=== PATIENT | male | born 1940 | race Two or more races ===

== ENCOUNTER 2018-09-16 17:06 | Inpatient (IN) | payer MEDICARE ==
[~2018-09-16] VITALS: Ht 170.2 cm; Wt 77.0 kg
[2018-09-16] MEDS ORDERED: NITROGLYCERIN OINT 2%, 1GM TP ONE ×3 (18:00→19:00)
[2018-09-16] MEDS ORDERED: DILTIAZEM 5 MG/ML, 5ML IVPush ONE (18:00)
[2018-09-16] MEDS ORDERED: DILTIAZEM 5 MG/ML, 5ML ONE (18:01)
[2018-09-16 18:11] LABS: INTERNATIONAL NORMALIZED RATIO 1.38 (0.93-1.1); PROTHROMBIN TIME 14.3 Seconds (9.6-11.5)
[2018-09-16 18:14] LABS: ALBUMIN 3.8 g/dL (3.4-5.0); ANION GAP 9 mmol/L (5-15); CALCIUM 8.9 mg/dL (8.5-10.1); CHLORIDE 109 mmol/L (98-107)
[2018-09-16 18:19] LABS: MD YES; MEAN CORPUSCULAR HEMOGLOBIN 21.6 pg (27.5-34.5); MEAN CORPUSCULAR HGB CONC 30.9 g/dL (33.2-36.2); MEAN CORPUSCULAR VOLUME 69.9 fL (81-97); MEAN PLATELET VOLUME 8.8 fL (7.4-10.4); PLATELET COUNT 196 x10^3/uL (130-400); RED BLOOD COUNT 5.79 x10^6/uL (4.38-5.82); RED CELL DISTRIBUTION WIDTH 16.9 % (9.4-14.8)
[2018-09-16 18:20] LABS: ALANINE AMINOTRANSFERASE 43 U/L (12-78); ALKALINE PHOSPHATASE 109 U/L (45-117); BILIRUBIN,TOTAL 1.1 mg/dL (0.2-1.0); CREATININE 1.25 mg/dL (0.7-1.3); TOTAL PROTEIN 7.5 g/dL (6.4-8.2)
[2018-09-16 18:22] LABS: BAND#(MANUAL) 0.06 x10^3/uL; BANDS%(MANUAL) 1 % (0-7); BASOS#(MANUAL) 0.12 x10^3/uL (0-0.1); BASOS% (MANUAL) 2 % (0-1); EOS#(MANUAL) 0.06 x10^3/uL (0.0-0.4); EOS% (MANUAL) 1 % (1-7); LYMPH#(MANUAL) 1.77 x10^3/uL (1-3.4); LYMPHS% (MANUAL) 30 % (22-44); MONOS#(MANUAL) 0.53 x10^3/uL (0.3-2.7); MONOS% (MANUAL) 9 % (2-9); SEG#(MANUAL) 3.36 x10^3/uL (1.8-6.8); SEGS% (MANUAL) 57 % (42-75)
[2018-09-16 18:23] LABS: <PLATELET ESTIMATE> ADEQUATE; <PLT MORPHOLOGY> NORMAL PLT MORPH; ANISOCYTOSIS 1+; MICROCYTOSIS 1+; OVALOCYTES 1+
[2018-09-16 18:24] LABS: TROPONIN I 0.438 ng/mL (0.000-0.045)
[2018-09-16] MEDS ORDERED: ASPIRIN 325 MG TABLET PO ONE (18:30)
[2018-09-16] MEDS ORDERED: ASPIRIN 81 MG TABLET CHEW ONE (18:38)
[2018-09-16] MEDS ORDERED: ASPIRIN 325 MG TABLET ONE (18:45)
[2018-09-16 18:57] LABS: THYROID STIMULATING HORMONE 1.78 mIU/L (0.358-3.740)
[2018-09-16] MEDS ORDERED: FOLI-17 PO (19:01)
[2018-09-16] MEDS ORDERED: MELO15TA24 PO (19:01)
[2018-09-16] MEDS ORDERED: [UNRECOGNIZED DRUG - OTHER] PO (19:01)
[2018-09-16] MEDS ORDERED: SIMV40TA3 PO (19:01)
[2018-09-16] MEDS ORDERED: APIX5TAB PO (19:01)
[2018-09-16] MEDS ORDERED: MULT-717 PO (19:01)
[2018-09-16] MEDS ORDERED: RAMI10CA59 PO (19:01)
[2018-09-16] MEDS ORDERED: PROBIOTIC (19:01)
[2018-09-16] MEDS ORDERED: PSYL0.5215 PO (19:01)
[2018-09-16] MEDS ORDERED: LEUP3.75 IM (19:01)
[2018-09-16] MEDS ORDERED: POLYETHYLENE GLYCOL 17 GM PACKET PO PRN (20:00)
[2018-09-16] MEDS ORDERED: ONDANSETRON ODT 4 MG PO PRN (20:00)
[2018-09-16] MEDS ORDERED: LEUPROLIDE ACETATE IM SCH (20:00)
[2018-09-16] MEDS ORDERED: BISACODYL 10 MG SUPP PR PRN (20:00)
[2018-09-16] MEDS ORDERED: ACETAMINOPHEN 325 MG TABLET PO PRN (20:00)
[2018-09-16] MEDS: SIMVASTATIN 40 MG TABLET PO SCH (20:23)
[2018-09-16] MEDS: FUROSEMIDE 20 MG/2 ML IV SCH (20:23)
[2018-09-16] MEDS: APIXABAN 5 MG TABLET PO SCH (20:23)
[2018-09-16] MEDS: METOPROLOL TARTRATE 25 MG TABLET PO SCH (20:24)
[2018-09-16] MEDS: SODIUM CHLORIDE FLUSH 10ML SYR IVF SCH (20:24)
[2018-09-16 20:35] VITALS: BP 168/101
[2018-09-16 21:20] VITALS: BP 164/94
[2018-09-17 01:17] LABS: TROPONIN I 0.435 ng/mL (0.000-0.045)
[2018-09-17 01:57] VITALS: BP 127/83
[2018-09-17] MEDS ORDERED: BICA50TA5 PO (03:29)
[2018-09-17 06:10] VITALS: BP 166/92
[2018-09-17] MEDS: METOPROLOL TARTRATE 25 MG TABLET PO SCH (06:10)
[2018-09-17] MEDS: FUROSEMIDE 20 MG/2 ML IV SCH (06:13)
[2018-09-17 06:17] LABS: MEAN CORPUSCULAR HEMOGLOBIN 21.7 pg (27.5-34.5); MEAN CORPUSCULAR HGB CONC 30.7 g/dL (33.2-36.2); MEAN CORPUSCULAR VOLUME 70.5 fL (81-97); MEAN PLATELET VOLUME 8.6 fL (7.4-10.4); PLATELET COUNT 202 x10^3/uL (130-400); RED BLOOD COUNT 5.93 x10^6/uL (4.38-5.82); RED CELL DISTRIBUTION WIDTH 17.1 % (9.4-14.8)
[2018-09-17 06:32] LABS: MD YES
[2018-09-17 06:40] LABS: LYMPH#(MANUAL) 1.81 x10^3/uL (1-3.4); LYMPHS% (MANUAL) 27 % (22-44); MONOS#(MANUAL) 0.13 x10^3/uL (0.3-2.7); MONOS% (MANUAL) 2 % (2-9); NRBC % (MANUAL) 3 % (0-1); SEG#(MANUAL) 4.76 x10^3/uL (1.8-6.8); SEGS% (MANUAL) 71 % (42-75)
[2018-09-17 06:41] LABS: ANISOCYTOSIS 1+; MICROCYTOSIS 1+; OVALOCYTES 1+; POLYCHROMASIA 1+
[2018-09-17 06:42] LABS: <PLATELET ESTIMATE> ADEQUATE; <PLT MORPHOLOGY> NORMAL PLT MORPH
[2018-09-17 07:05] LABS: ALANINE AMINOTRANSFERASE 54 U/L (12-78); ALBUMIN 3.7 g/dL (3.4-5.0); ANION GAP 9 mmol/L (5-15); CHLORIDE 108 mmol/L (98-107)
[2018-09-17 07:09] LABS: ALKALINE PHOSPHATASE 111 U/L (45-117); BILIRUBIN,TOTAL 1.1 mg/dL (0.2-1.0); TOTAL PROTEIN 7.4 g/dL (6.4-8.2); TROPONIN I 0.407 ng/mL (0.000-0.045)
[2018-09-17] MEDS: SENNA/DOCUSATE TABLET PO SCH (08:55)
[2018-09-17] MEDS: APIXABAN 5 MG TABLET PO SCH ×2 (08:55→20:34)
[2018-09-17] MEDS: FOLIC ACID 1 MG TABLET PO SCH (08:56)
[2018-09-17] MEDS: POTASSIUM CHLORIDE 20 MEQ TAB.ER.PRT PO SCH (08:56)
[2018-09-17] MEDS: MULTIVITAMINS/MINERALS TABLET PO SCH (08:56)
[2018-09-17] MEDS: SODIUM CHLORIDE FLUSH 10ML SYR IVF SCH ×2 (08:56→20:33)
[2018-09-17] MEDS: BICALUTAMIDE 50 MG TABLET PO SCH (09:00)
[2018-09-17] MEDS ORDERED: FUROSEMIDE 40 MG/4 ML IV SCH (09:00)
[2018-09-17] MEDS ORDERED: [UNRECOGNIZED DRUG - OTHER] PO SCH (09:00)
[2018-09-17] MEDS ORDERED: FOLIC ACID 1 MG TABLET PO SCH (09:00)
[2018-09-17] MEDS ORDERED: RAMIPRIL 5 MG CAP PO SCH (09:00)
[2018-09-17 12:52] VITALS: BP 155/94
[2018-09-17 14:15] LABS: ANION GAP 7 mmol/L (5-15); CALCIUM 9.2 mg/dL (8.5-10.1); CHLORIDE 106 mmol/L (98-107); CREATININE 1.66 mg/dL (0.7-1.3)
[2018-09-17] MEDS ORDERED: hydrALAzine 20 MG/ML, 1ML IV PRN (16:30)
[2018-09-17] MEDS: METOPROLOL TARTRATE 50 MG TABLET PO SCH (17:07)
[2018-09-17] MEDS ORDERED: METOPROLOL TARTRATE 25 MG TABLET PO SCH (18:00)
[2018-09-17 20:05] VITALS: BP 137/87
[2018-09-17] MEDS: SIMVASTATIN 40 MG TABLET PO SCH (20:33)
[2018-09-18 03:55] VITALS: BP 140/77
[2018-09-18 05:31] VITALS: BP 176/102
[2018-09-18] MEDS: METOPROLOL TARTRATE 50 MG TABLET PO SCH (05:32)
[2018-09-18 06:24] VITALS: BP 174/92
[2018-09-18 06:54] LABS: ANION GAP 10 mmol/L (5-15); CALCIUM 8.9 mg/dL (8.5-10.1); CHLORIDE 107 mmol/L (98-107); CREATININE 1.81 mg/dL (0.7-1.3)
[2018-09-18] MEDS: BICALUTAMIDE 50 MG TABLET PO SCH ×3 (07:29→10:45)
[2018-09-18] MEDS ORDERED: SODIUM CHLORIDE 0.9%, 500ML IVBOLUS ONE (07:30)
[2018-09-18 07:39] VITALS: BP 161/96
[2018-09-18] MEDS: FOLIC ACID 1 MG TABLET PO SCH (08:01)
[2018-09-18] MEDS: MULTIVITAMINS/MINERALS TABLET PO SCH (08:01)
[2018-09-18] MEDS: POTASSIUM CHLORIDE 20 MEQ TAB.ER.PRT PO SCH (08:02)
[2018-09-18] MEDS: APIXABAN 5 MG TABLET PO SCH ×2 (08:02→20:43)
[2018-09-18] MEDS: AMLODIPINE 5 MG TABLET PO SCH (08:02)
[2018-09-18] MEDS: SENNA/DOCUSATE TABLET PO SCH (08:03)
[2018-09-18] MEDS: SODIUM CHLORIDE FLUSH 10ML SYR IVF SCH ×2 (08:04→20:43)
[2018-09-18] MEDS: SODIUM CHLORIDE 0.9% 1,000 ML IV SCH ×3 (08:14→20:43)
[2018-09-18 13:15] LABS: ANION GAP 8 mmol/L (5-15); CALCIUM 8.8 mg/dL (8.5-10.1); CHLORIDE 109 mmol/L (98-107); CREATININE 1.69 mg/dL (0.7-1.3)
[2018-09-18 13:32] VITALS: BP 155/87
[2018-09-18] MEDS ORDERED: CARVEDILOL 25 MG TABLET ONE (15:37)
[2018-09-18] MEDS: CARVEDILOL 25 MG TABLET PO SCH (15:43)
[2018-09-18 18:35] VITALS: BP 128/80
[2018-09-18] MEDS: ATORVASTATIN 40 MG TABLET PO SCH (20:43)
[2018-09-19 03:34] VITALS: BP 120/86
[2018-09-19 05:11] LABS: ANION GAP 4 mmol/L (5-15); CALCIUM 8.4 mg/dL (8.5-10.1); CHLORIDE 113 mmol/L (98-107); CREATININE 1.57 mg/dL (0.7-1.3)
[2018-09-19] MEDS: CARVEDILOL 25 MG TABLET PO SCH (05:38)
[2018-09-19] MEDS: SODIUM CHLORIDE 0.9% 1,000 ML IV SCH ×2 (05:38→19:32)
[2018-09-19 05:55] LABS: MD YES; MEAN CORPUSCULAR HEMOGLOBIN 21.7 pg (27.5-34.5); MEAN CORPUSCULAR HGB CONC 30.5 g/dL (33.2-36.2); MEAN PLATELET VOLUME 9.1 fL (7.4-10.4); PLATELET COUNT 171 x10^3/uL (130-400); RED BLOOD COUNT 5.39 x10^6/uL (4.38-5.82); RED CELL DISTRIBUTION WIDTH 17.1 % (9.4-14.8)
[2018-09-19 05:57] LABS: LYMPH#(MANUAL) 1.54 x10^3/uL (1-3.4); LYMPHS% (MANUAL) 20 % (22-44); MONOS#(MANUAL) 0.31 x10^3/uL (0.3-2.7); MONOS% (MANUAL) 4 % (2-9); NRBC % (MANUAL) 9 % (0-1); SEG#(MANUAL) 5.85 x10^3/uL (1.8-6.8); SEGS% (MANUAL) 76 % (42-75)
[2018-09-19 05:58] LABS: ANISOCYTOSIS 1+; ECHINOCYTES 1+; HYPOCHROMIA 1+; MICROCYTOSIS 1+; OVALOCYTES 1+; POLYCHROMASIA 1+
[2018-09-19 05:59] LABS: <PLATELET ESTIMATE> ADEQUATE; <PLT MORPHOLOGY> NORMAL PLT MORPH; SCHISTOCYTES 1+
[2018-09-19 06:00] LABS: TEAR DROPS 1+
[2018-09-19 06:56] VITALS: BP 131/83
[2018-09-19] MEDS ORDERED: REGADENOSON 0.4 MG/5 ML SYRINGE ONE (07:52)
[2018-09-19] MEDS: AMLODIPINE 5 MG TABLET PO SCH (08:00)
[2018-09-19] MEDS: FOLIC ACID 1 MG TABLET PO SCH (08:00)
[2018-09-19] MEDS: APIXABAN 5 MG TABLET PO SCH ×2 (08:00→20:23)
[2018-09-19] MEDS: BICALUTAMIDE 50 MG TABLET PO SCH (08:00)
[2018-09-19] MEDS: MULTIVITAMINS/MINERALS TABLET PO SCH (08:00)
[2018-09-19] MEDS: POTASSIUM CHLORIDE 20 MEQ TAB.ER.PRT PO SCH (08:00)
[2018-09-19] MEDS: SENNA/DOCUSATE TABLET PO SCH (08:00)
[2018-09-19] MEDS: SODIUM CHLORIDE FLUSH 10ML SYR IVF SCH ×2 (08:03→20:23)
[2018-09-19 14:23] VITALS: BP 132/86
[2018-09-19 18:53] VITALS: BP 126/74
[2018-09-19] MEDS: ATORVASTATIN 40 MG TABLET PO SCH (20:23)
[2018-09-20] MEDS: SODIUM CHLORIDE 0.9% 1,000 ML IV SCH ×2 (00:01→07:26)
[2018-09-20 01:10] VITALS: BP 124/73
[2018-09-20 06:20] LABS: ALBUMIN 3.4 g/dL (3.4-5.0); ANION GAP 6 mmol/L (5-15); CALCIUM 8.5 mg/dL (8.5-10.1); CHLORIDE 115 mmol/L (98-107)
[2018-09-20 06:27] LABS: ALANINE AMINOTRANSFERASE 142 U/L (12-78); ALKALINE PHOSPHATASE 102 U/L (45-117); BILIRUBIN,TOTAL 0.9 mg/dL (0.2-1.0); CREATININE 1.36 mg/dL (0.7-1.3); TOTAL PROTEIN 6.6 g/dL (6.4-8.2)
[2018-09-20 06:41] LABS: MEAN CORPUSCULAR HEMOGLOBIN 21.2 pg (27.5-34.5); MEAN CORPUSCULAR HGB CONC 30.2 g/dL (33.2-36.2); MEAN CORPUSCULAR VOLUME 70.2 fL (81-97); MEAN PLATELET VOLUME 9.1 fL (7.4-10.4); PLATELET COUNT 163 x10^3/uL (130-400); RED BLOOD COUNT 5.42 x10^6/uL (4.38-5.82); RED CELL DISTRIBUTION WIDTH 17.9 % (9.4-14.8)
[2018-09-20 06:51] VITALS: BP 135/82
[2018-09-20 07:33] LABS: MD YES
[2018-09-20 07:35] LABS: <PLATELET ESTIMATE> ADEQUATE; <PLT MORPHOLOGY> NORMAL PLT MORPH; ANISOCYTOSIS 1+; HYPOCHROMIA 1+; LYMPH#(MANUAL) 1.41 x10^3/uL (1-3.4); LYMPHS% (MANUAL) 21 % (22-44); MICROCYTOSIS 1+; MONOS#(MANUAL) 0.34 x10^3/uL (0.3-2.7); MONOS% (MANUAL) 5 % (2-9); NRBC % (MANUAL) 1 % (0-1); OVALOCYTES 1+; POLYCHROMASIA 1+; SEG#(MANUAL) 4.96 x10^3/uL (1.8-6.8); SEGS% (MANUAL) 74 % (42-75); TEAR DROPS 1+
[2018-09-20] MEDS: BICALUTAMIDE 50 MG TABLET PO SCH (10:29)
[2018-09-20] MEDS: SODIUM CHLORIDE FLUSH 10ML SYR IVF SCH ×2 (10:30→20:44)
[2018-09-20] MEDS: FOLIC ACID 1 MG TABLET PO SCH (10:30)
[2018-09-20] MEDS: APIXABAN 5 MG TABLET PO SCH ×2 (10:30→20:44)
[2018-09-20] MEDS: MULTIVITAMINS/MINERALS TABLET PO SCH (10:30)
[2018-09-20] MEDS: AMLODIPINE 10 MG TAB PO SCH (10:30)
[2018-09-20] MEDS: POTASSIUM CHLORIDE 20 MEQ TAB.ER.PRT PO SCH (10:31)
[2018-09-20] MEDS: SENNA/DOCUSATE TABLET PO SCH (10:32)
[2018-09-20] MEDS ORDERED: OXYcodone IR 5MG TABLET PO PRN (11:30)
[2018-09-20 12:23] VITALS: BP 130/76
[2018-09-20] MEDS: methylPREDNISolone SOD SUCC 40 MG/ML IV SCH ×2 (18:11→23:02)
[2018-09-20] MEDS ORDERED: ALBUTEROL/IPRATROPIUM 2.5MG/0.5MG, 3 ML NPPB PRN (19:30)
[2018-09-20] MEDS ORDERED: ALBUTEROL/IPRATROPIUM 2.5MG/0.5MG, 3 ML ONE (19:31)
[2018-09-20 20:22] VITALS: BP 135/77
[2018-09-20] MEDS: ATORVASTATIN 40 MG TABLET PO SCH (20:44)
[2018-09-20 23:29] LABS: CULTURE INDICATED? YES; MICROSCOPIC INDICATED
[2018-09-21] MEDS: CEFTRIAXONE PMX 1GM/50ML 50 ML IV SCH ×2 (00:06→23:53)
[2018-09-21 01:13] VITALS: BP 128/68
[2018-09-21 05:48] LABS: CHLORIDE 112 mmol/L (98-107)
[2018-09-21] MEDS: methylPREDNISolone SOD SUCC 40 MG/ML IV SCH ×4 (05:50→23:53)
[2018-09-21 05:55] LABS: ALANINE AMINOTRANSFERASE 140 U/L (12-78); ALBUMIN 3.4 g/dL (3.4-5.0); ALKALINE PHOSPHATASE 109 U/L (45-117); ANION GAP 7 mmol/L (5-15); BILIRUBIN,TOTAL 0.9 mg/dL (0.2-1.0); CALCIUM 8.8 mg/dL (8.5-10.1); CREATININE 1.22 mg/dL (0.7-1.3); TOTAL PROTEIN 6.8 g/dL (6.4-8.2)
[2018-09-21 05:56] LABS: MEAN CORPUSCULAR HEMOGLOBIN 21.4 pg (27.5-34.5); MEAN CORPUSCULAR HGB CONC 30.1 g/dL (33.2-36.2); MEAN CORPUSCULAR VOLUME 70.9 fL (81-97); MEAN PLATELET VOLUME 9.2 fL (7.4-10.4); PLATELET COUNT 170 x10^3/uL (130-400); RED BLOOD COUNT 5.69 x10^6/uL (4.38-5.82)
[2018-09-21 06:02] LABS: BASOPHILS % (AUTO) 0 % (0-1); EOSINOPHILS % (AUTO) 0 % (1-7); LYMPHOCYTES # (AUTO) 0.47 x10^3/uL (1-3.4); LYMPHOCYTES % (AUTO) 10 % (22-44); MD MORPH REVIEW ONLY; MONOCYTES # (AUTO) 0.03 x10^3/uL (0.2-0.8); MONOCYTES % (AUTO) 1 % (2-9); NEUTROPHILS # (AUTO) 4.38 x10^3/uL (1.8-6.8); NEUTROPHILS % (AUTO) 90 % (42-75)
[2018-09-21 06:03] LABS: ACANTHOCYTES 1+; ANISOCYTOSIS 1+; MICROCYTOSIS 1+; POLYCHROMASIA 1+
[2018-09-21 06:10] LABS: <PLATELET ESTIMATE> ADEQUATE; <PLT MORPHOLOGY> NORMAL PLT MORPH
[2018-09-21] MEDS: BICALUTAMIDE 50 MG TABLET PO SCH (08:47)
[2018-09-21] MEDS: AMLODIPINE 10 MG TAB PO SCH (08:49)
[2018-09-21] MEDS: MULTIVITAMINS/MINERALS TABLET PO SCH (08:49)
[2018-09-21] MEDS: FOLIC ACID 1 MG TABLET PO SCH (08:49)
[2018-09-21] MEDS: APIXABAN 5 MG TABLET PO SCH ×2 (08:49→20:19)
[2018-09-21] MEDS: POTASSIUM CHLORIDE 20 MEQ TAB.ER.PRT PO SCH (08:49)
[2018-09-21 08:52] VITALS: BP 164/103
[2018-09-21] MEDS: SENNA/DOCUSATE TABLET PO SCH (08:56)
[2018-09-21] MEDS: SODIUM CHLORIDE FLUSH 10ML SYR IVF SCH ×2 (08:56→20:19)
[2018-09-21 09:10] VITALS: BP 161/87
[2018-09-21 10:19] LABS: FIO2 ROOM AIR %
[2018-09-21 15:59] VITALS: BP 137/74
[2018-09-21] MEDS: FUROSEMIDE 40 MG/4 ML IV SCH (17:12)
[2018-09-21] MEDS: ATORVASTATIN 40 MG TABLET PO SCH (20:19)
[2018-09-21 20:45] VITALS: BP 142/88
[2018-09-21] MEDS ORDERED: PHENAZOPYRIDINE 200 MG TABLET PO PRN (21:30)
[2018-09-22 03:29] VITALS: BP 133/76
[2018-09-22] MEDS: methylPREDNISolone SOD SUCC 40 MG/ML IV SCH ×2 (05:07→12:00)
[2018-09-22 05:44] LABS: ANION GAP 8 mmol/L (5-15); CALCIUM 9.1 mg/dL (8.5-10.1); CHLORIDE 107 mmol/L (98-107); CREATININE 1.41 mg/dL (0.7-1.3)
[2018-09-22 05:47] LABS: MEAN CORPUSCULAR HEMOGLOBIN 21.3 pg (27.5-34.5); MEAN CORPUSCULAR HGB CONC 30.6 g/dL (33.2-36.2); MEAN CORPUSCULAR VOLUME 69.7 fL (81-97); MEAN PLATELET VOLUME 8.4 fL (7.4-10.4); PLATELET COUNT 168 x10^3/uL (130-400); RED BLOOD COUNT 5.81 x10^6/uL (4.38-5.82)
[2018-09-22 06:47] VITALS: BP 143/77
[2018-09-22 07:00] LABS: BASOPHILS % (AUTO) 0 % (0-1); EOSINOPHILS % (AUTO) 0 % (1-7); LYMPHOCYTES # (AUTO) 0.43 x10^3/uL (1-3.4); LYMPHOCYTES % (AUTO) 5 % (22-44); MD SCAN; MONOCYTES # (AUTO) 0.18 x10^3/uL (0.2-0.8); MONOCYTES % (AUTO) 2 % (2-9); NEUTROPHILS # (AUTO) 7.78 x10^3/uL (1.8-6.8); NEUTROPHILS % (AUTO) 93 % (42-75)
[2018-09-22] MEDS ORDERED: FUROSEMIDE 40 MG/4 ML IV SCH (09:00)
[2018-09-22] MEDS: SODIUM CHLORIDE FLUSH 10ML SYR IVF SCH ×2 (09:00→20:20)
[2018-09-22] MEDS: SENNA/DOCUSATE TABLET PO SCH (09:00)
[2018-09-22] MEDS: POTASSIUM CHLORIDE 20 MEQ TAB.ER.PRT PO SCH (09:35)
[2018-09-22] MEDS: FUROSEMIDE 40 MG/4 ML IV SCH (09:36)
[2018-09-22] MEDS: AMLODIPINE 10 MG TAB PO SCH (09:38)
[2018-09-22] MEDS: FOLIC ACID 1 MG TABLET PO SCH (09:38)
[2018-09-22] MEDS: BICALUTAMIDE 50 MG TABLET PO SCH (09:38)
[2018-09-22] MEDS: APIXABAN 5 MG TABLET PO SCH ×2 (09:38→20:19)
[2018-09-22] MEDS: MULTIVITAMINS/MINERALS TABLET PO SCH (09:39)
[2018-09-22 13:10] VITALS: BP 144/84
[2018-09-22 19:08] VITALS: BP 146/76
[2018-09-22] MEDS: ATORVASTATIN 40 MG TABLET PO SCH (20:19)
[2018-09-23] MEDS: CEFTRIAXONE PMX 1GM/50ML 50 ML IV SCH (00:12)
[2018-09-23 00:57] VITALS: BP 124/84
[2018-09-23 05:59] LABS: ANION GAP 7 mmol/L (5-15); CALCIUM 8.8 mg/dL (8.5-10.1); CHLORIDE 104 mmol/L (98-107)
[2018-09-23 06:00] LABS: CREATININE 1.21 mg/dL (0.7-1.3)
[2018-09-23 06:35] VITALS: BP 119/81
[2018-09-23 08:12] LABS: ALBUMIN 3.2 g/dL (3.4-5.0); BILIRUBIN, DIRECT 0.2 mg/dL (0.1-0.2)
[2018-09-23 08:14] LABS: BILIRUBIN,INDIRECT 0.3 mg/dL (0.0-2.0); BILIRUBIN,TOTAL 0.5 mg/dL (0.2-1.0); TOTAL PROTEIN 6.6 g/dL (6.4-8.2)
[2018-09-23] MEDS: SODIUM CHLORIDE FLUSH 10ML SYR IVF SCH ×2 (09:00→20:10)
[2018-09-23] MEDS: SENNA/DOCUSATE TABLET PO SCH (09:00)
[2018-09-23] MEDS: FUROSEMIDE 40 MG/4 ML IV SCH (09:00)
[2018-09-23] MEDS: MULTIVITAMINS/MINERALS TABLET PO SCH (09:09)
[2018-09-23] MEDS: AMLODIPINE 10 MG TAB PO SCH (09:09)
[2018-09-23] MEDS: POTASSIUM CHLORIDE 20 MEQ TAB.ER.PRT PO SCH (09:09)
[2018-09-23] MEDS: FOLIC ACID 1 MG TABLET PO SCH (09:10)
[2018-09-23] MEDS: BICALUTAMIDE 50 MG TABLET PO SCH (09:11)
[2018-09-23] MEDS: APIXABAN 5 MG TABLET PO SCH ×2 (09:11→20:10)
[2018-09-23] MEDS: METOPROLOL SUCCINATE 25 MG TAB.ER.24H PO SCH (09:57)
[2018-09-23 12:49] VITALS: BP 132/81
[2018-09-23] MEDS ORDERED: PHENAZOPYRIDINE 100 MG TABLET PO PRN (15:00)
[2018-09-23 18:30] VITALS: BP 118/77
[2018-09-23] MEDS: ATORVASTATIN 40 MG TABLET PO SCH (20:10)
[2018-09-24] MEDS: CEFTRIAXONE PMX 1GM/50ML 50 ML IV SCH ×2 (00:17→17:43)
[2018-09-24 01:29] VITALS: BP 121/67
[2018-09-24 04:38] LABS: ANION GAP 7 mmol/L (5-15); CALCIUM 8.9 mg/dL (8.5-10.1); CHLORIDE 101 mmol/L (98-107); CREATININE 1.21 mg/dL (0.7-1.3)
[2018-09-24] MEDS: METOPROLOL SUCCINATE 25 MG TAB.ER.24H PO SCH (06:01)
[2018-09-24 06:38] VITALS: BP 124/84
[2018-09-24] MEDS: SENNA/DOCUSATE TABLET PO SCH (09:00)
[2018-09-24] MEDS: FOLIC ACID 1 MG TABLET PO SCH (09:34)
[2018-09-24] MEDS: POTASSIUM CHLORIDE 20 MEQ TAB.ER.PRT PO SCH (09:35)
[2018-09-24] MEDS: AMLODIPINE 10 MG TAB PO SCH (09:35)
[2018-09-24] MEDS: APIXABAN 5 MG TABLET PO SCH ×2 (09:35→20:30)
[2018-09-24] MEDS: BICALUTAMIDE 50 MG TABLET PO SCH (09:37)
[2018-09-24] MEDS: SODIUM CHLORIDE FLUSH 10ML SYR IVF SCH ×2 (12:00→20:31)
[2018-09-24] MEDS: MULTIVITAMINS/MINERALS TABLET PO SCH (12:14)
[2018-09-24] MEDS: FUROSEMIDE 40 MG/4 ML IV SCH (12:14)
[2018-09-24 12:44] VITALS: BP 135/70
[2018-09-24] MEDS: ATORVASTATIN 40 MG TABLET PO SCH (20:30)
[2018-09-24 20:38] VITALS: BP 112/73
[2018-09-25 02:17] VITALS: BP 115/78
[2018-09-25 05:05] LABS: ANION GAP 7 mmol/L (5-15); CALCIUM 8.7 mg/dL (8.5-10.1); CHLORIDE 103 mmol/L (98-107)
[2018-09-25 05:07] LABS: CREATININE 1.07 mg/dL (0.7-1.3)
[2018-09-25 07:57] VITALS: BP 133/79
[2018-09-25] MEDS ORDERED: PHEN-582 PO (08:45)
[2018-09-25] MEDS ORDERED: POTA20TA6 PO (08:45)
[2018-09-25] MEDS ORDERED: AMLO10TA8 PO (08:45)
[2018-09-25] MEDS ORDERED: METO25TA91 PO (08:45)
[2018-09-25] MEDS ORDERED: PRED20TA PO (08:45)
[2018-09-25] MEDS ORDERED: FURO20TA3 PO (08:45)
[2018-09-25] MEDS: SODIUM CHLORIDE FLUSH 10ML SYR IVF SCH (09:00)
[2018-09-25] MEDS: BICALUTAMIDE 50 MG TABLET PO SCH (09:00)
[2018-09-25] MEDS: FUROSEMIDE 40 MG/4 ML IV SCH (09:00)
[2018-09-25] MEDS: SENNA/DOCUSATE TABLET PO SCH (09:00)
[2018-09-25] MEDS: FOLIC ACID 1 MG TABLET PO SCH (09:18)
[2018-09-25] MEDS: POTASSIUM CHLORIDE 20 MEQ TAB.ER.PRT PO SCH (09:19)
[2018-09-25] MEDS: AMLODIPINE 10 MG TAB PO SCH (09:19)
[2018-09-25] MEDS: MULTIVITAMINS/MINERALS TABLET PO SCH (09:19)
[2018-09-25] MEDS: APIXABAN 5 MG TABLET PO SCH (09:20)
[2018-09-25] MEDS: METOPROLOL SUCCINATE 25 MG TAB.ER.24H PO SCH (09:25)
== END 2018-09-25 10:50 | disposition home or self-care (01) | DRG 682 ==
LOC: ED 19:12 → EDIP 19:24 → 5SO 20:06
PROVIDERS: ADMIT Family Medicine; ATTEND Internal Medicine
PROC: 0T9B70Z Drainage of Bladder with Drainage Device, Via Natural or Artificial Opening (ICD-10-PCS; principal; 2018-09-20)
DX: N17.0 Acute kidney failure with tubular necrosis (principal); J96.00 Acute respiratory failure, unspecified whether with hypoxia or hypercapnia; I50.33 Acute on chronic diastolic (congestive) heart failure; I13.0 Hypertensive heart and chronic kidney disease with heart failure and stage 1 through stage 4 chronic kidney disease, or unspecified chronic kidney disease; D68.69 Other thrombophilia; C79.51 Secondary malignant neoplasm of bone; I31.3 Pericardial effusion (noninflammatory); I47.2 Ventricular tachycardia; I48.92 Unspecified atrial flutter; J44.1 Chronic obstructive pulmonary disease with (acute) exacerbation; N39.0 Urinary tract infection, site not specified; Z91.018 Allergy to other foods; C61 Malignant neoplasm of prostate; D50.9 Iron deficiency anemia, unspecified; E78.5 Hyperlipidemia, unspecified; I08.2 Rheumatic disorders of both aortic and tricuspid valves; E66.3 Overweight; I48.2 Chronic atrial fibrillation; I49.5 Sick sinus syndrome; N18.3 Chronic kidney disease, stage 3 (moderate); N32.89 Other specified disorders of bladder; Z79.01 Long term (current) use of anticoagulants; Z79.818 Long term (current) use of other agents affecting estrogen receptors and estrogen levels; Z82.3 Family history of stroke; Z87.442 Personal history of urinary calculi; Z87.891 Personal history of nicotine dependence; Z92.3 Personal history of irradiation
CPT/HCPCS: 36415; 36600; 71045; 71250; 74176; 78452; 80048; 80053; 80076; 81001; 82728; 82803; 83540; 83550; 83735; 83880; 84100; 84443; 84484; 85025; 85610; 85730; 87086; 93005; 93017; 93306; 93970; 94640; 96374; G0378; J0696; J1940; J2785; A9502; C9898; J2920; J7030; J7040; J7512